=== PATIENT | female | born 1960 | race Caucasian/White ===

== ENCOUNTER 2016-06-05 05:35 | Emergency (ER) | payer SELFPAY ==
[~2016-06-05] VITALS: Ht 154.9 cm; Wt 59.0 kg
[2016-06-05 06:00] VITALS: BP 150/96
[2016-06-05] MEDS ORDERED: TDAP [DIPH/PERTUSSIS/TET] 0.5 ML VIAL IM ONE ×2 (06:30→06:31)
[2016-06-05] MEDS ORDERED: MISCELLANEOUS MED 1 EA EA XX ONE (07:00)
== END 2016-06-05 07:06 | disposition home or self-care (01) ==
LOC: ER 05:37
DX: S61.211A Laceration without foreign body of left index finger without damage to nail, initial encounter (principal); I10 Essential (primary) hypertension; W26.0XXA Contact with knife, initial encounter; Y93.89 Activity, other specified; Y92.89 Other specified places as the place of occurrence of the external cause; Y99.8 Other external cause status
CPT/HCPCS: 12001; 90471; 90715; 99283; A4606; A6402; Z7610

== ENCOUNTER 2017-06-15 01:21 | Emergency (ER) | payer BC ==
[~2017-06-15] VITALS: Ht 152.4 cm; Wt 59.9 kg
[2017-06-15 01:36] VITALS: BP 155/88
[2017-06-15] MEDS ORDERED: BUPIVACAINE 0.5 % PF 150 MG/30 ML VIAL ONE (02:08)
--- NOTE | 2017-06-15 02:16 | NUR ---
wilder dorantes at bedside for digital block.
[2017-06-15] MEDS ORDERED: BUPIVACAINE 0.5 % PF 150 MG/30 ML VIAL IJ ONE (02:30)
--- NOTE | 2017-06-15 02:36 | NUR ---
now pt does not want to follow through with the procedure oferred by wilder dorantes. L middle finger cleansed with ns, band aid applied.
--- NOTE | 2017-06-15 02:37 | NUR ---
Patient discharged to home in stable condition. Written and verbal after care instructions given. Patient verbalizes understanding of instruction.
== END 2017-06-15 02:38 | disposition home or self-care (01) ==
LOC: ER 01:21
DX: L03.012 Cellulitis of left finger (principal); M79.645 Pain in left finger(s); I10 Essential (primary) hypertension
CPT/HCPCS: 64450; 99284; A4606; A6402; J3490; Z7610